=== PATIENT | female | born 2000 | race Caucasian/White ===

== ENCOUNTER → 2019-07-15 20:46 | Observation (INO) ==
[2019-07-15 20:29] LABS: Amphetamine Screen,Urine Negative ng/mL (Cutoff=1000); Barbiturate Screen,Urine Positive ng/mL (Cutoff=200); Benzodiazepines Screen,Urine Negative ng/mL (Cutoff=200); Cannabinoid Screen,Urine Negative ng/mL (Cutoff = 50); Cocaine Screen,Urine Negative ng/mL (Cutoff= 300); Opiate Screen,Urine Negative ng/mL (Cutoff=300); Phencyclidine Screen,Urine Negative ng/mL (Cutoff=25)
[2019-07-15 20:40] LABS: Bilirubin,Urine Negative (Negative); Blood,Urine Negative (Negative); Clarity,Urine Cloudy (Clear); Color,Urine Yellow (Yellow); Glucose,Urine (UA) Normal (Normal); Ketones,Urine Negative (Negative); Leukocyte Esterase,Urine Moderate (Negative); Nitrite,Urine Negative (Negative); Protein,Urine Negative (Neg-Trace); Specific Gravity,Urine 1.015 (1.010-1.025); Urobilinogen,Urine Normal (Normal)
[2019-07-15 20:44] LABS: Bacteria,Urine Moderate per hpf (None-Few); Hyaline Casts,Urine None Seen per lpf (None-Few); RBC,Urine 0-3 per hpf (0-3); Squamous Epithelial Cell,Urine Many per lpf (None-Few); WBC,Urine 30-50 per hpf (0-3)
[2019-07-15 21:59] LABS: Candida DNA Not Detected (Not Detect); Gardnerella DNA Not Detected (Not Detect); Trichomonas DNA Not Detected (Not Detect)
== END | disposition home or self-care (01) ==
LOC: 1NENULAB
PROVIDERS: ADMIT Registered Nurse; ATTEND Registered Nurse

== ENCOUNTER → 2019-10-29 19:25 | Observation (INO) ==
[2019-10-29 17:01] LABS: Basophils % 0.1 %; Eosinophils % 0.3 %; Hematocrit 30.9 % (35.3-44.9); Hemoglobin 10.8 g/dL (11.5-15.4); Immature Granulocytes % 0.8 % (0-4); Lymphocytes # 1.2 K/mcL (0.6-4.6); Lymphocytes % 9.2 %; Mean Corpuscular Hemoglobin 32.9 pg (28.0-33.3); Mean Corpuscular Volume 94.2 fL (83.0-100.0); Monocytes # 0.8 K/mcL (0.0-1.3); Monocytes % 5.7 %; Neutrophils # 11.2 K/mcL (1.6-8.9); Platelet Count 230 K/mcL (140-400); Red Blood Count 3.28 M/mcL (3.82-4.97); Red Cell Distribution Width 12.1 % (11.5-14.5); Segmented Neutrophils % 83.9 %; White Blood Count 13.3 K/mcL (4.3-11.1)
[2019-10-29 17:13] LABS: Bilirubin,Urine Negative (Negative); Blood,Urine Negative (Negative); Clarity,Urine Cloudy (Clear); Color,Urine Yellow (Yellow); Glucose,Urine (UA) Normal (Normal); Ketones,Urine Negative (Negative); Leukocyte Esterase,Urine Moderate (Negative); Nitrite,Urine Negative (Negative); Protein,Urine Negative (Neg-Trace); Specific Gravity,Urine 1.011 (1.010-1.025); Urobilinogen,Urine Normal (Normal)
[2019-10-29 17:20] LABS: Protein/Creatinine Ratio,Urine 0.26 mg/mg (0.00-0.20)
[2019-10-29 17:21] LABS: Amphetamine Screen,Urine Negative ng/mL (Cutoff=1000); Barbiturate Screen,Urine Negative ng/mL (Cutoff=200); Benzodiazepines Screen,Urine Negative ng/mL (Cutoff=200); Cannabinoid Screen,Urine Negative ng/mL (Cutoff = 50); Cocaine Screen,Urine Negative ng/mL (Cutoff= 300); Opiate Screen,Urine Negative ng/mL (Cutoff=300); Phencyclidine Screen,Urine Negative ng/mL (Cutoff=25)
[2019-10-29 17:23] LABS: Bacteria,Urine Moderate per hpf (None-Few); Hyaline Casts,Urine None Seen per lpf (None-Few); RBC,Urine 0-3 per hpf (0-3); Squamous Epithelial Cell,Urine Many per lpf (None-Few); WBC,Urine 15-30 per hpf (0-3)
[2019-10-29 17:25] LABS: Alanine Aminotransferase 6 Units/L (7-52); Aspartate Amino Transferase 13 Units/L (13-39); BUN/Creatinine Ratio 8 (6-26); Blood Urea Nitrogen 4 mg/dL (6-20); Lactate Dehydrogenase 127 Units/L (140-271); Uric Acid 2.9 mg/dL (2.3-7.6); eGFR For African Americans > 60 (> 60); eGFR For Non-African Americans > 60 (> 60)
[~2019-10-29 19:25] MED LIST: Ringers Solution, Lactated 1,000 ML IVC SCH
== END | disposition home or self-care (01) ==
LOC: 1NENULAB
PROVIDERS: ADMIT Advanced Practice Midwife; ATTEND Advanced Practice Midwife

== ENCOUNTER 2019-11-18 16:59 | Inpatient (IN) ==
[2019-11-18] MEDS ORDERED: Metoclopramide 10 MG/2 ML VIAL IVP PRN (18:08)
[2019-11-18] MEDS ORDERED: Famotidine 20 MG/2 ML VIAL IVP PRN (18:08)
[2019-11-18] MEDS ORDERED: Lidocaine 1% 20 ML MDV INFILT PRN (18:08)
[2019-11-18] MEDS ORDERED: Naloxone 0.4 MG/ML INJ IVP PRN (18:08)
[2019-11-18] MEDS ORDERED: Ondansetron 4 MG/2 ML VIAL IVP PRN (18:08)
[2019-11-18] MEDS ORDERED: Ringers Solution, Lactated 1,000 ML IVC SCH (18:15)
[2019-11-18] MEDS ORDERED: EPHEDrine 50 MG/ML VIAL IVP PRN (18:30)
[2019-11-18] MEDS ORDERED: *HR* FentaNYL (PF) 100 MCG/2 ML VIAL EP ONE (18:30)
[2019-11-18] MEDS ORDERED: Epidural Premix (fent/bupiv) 110 ML EP SCH (18:30)
[2019-11-18] MEDS ORDERED: Bupivacaine-MPF 0.25% 10 ML VIAL EP ONE (18:30)
[2019-11-18 18:34] LABS: Basophils % 0.1 %; Eosinophils % 0.1 %; Hematocrit 31.5 % (35.3-44.9); Hemoglobin 10.9 g/dL (11.5-15.4); Immature Granulocytes % 0.8 % (0-4); Lymphocytes # 1.2 K/mcL (0.6-4.6); Lymphocytes % 7.1 %; Mean Corpuscular HGB Conc 34.6 g/dL (31.6-35.5); Mean Corpuscular Hemoglobin 32.7 pg (28.0-33.3); Mean Corpuscular Volume 94.6 fL (83.0-100.0); Mean Platelet Volume 12.9 fL (9.4-12.4); Monocytes # 0.7 K/mcL (0.0-1.3); Monocytes % 4.3 %; Neutrophils # 14.4 K/mcL (1.6-8.9); Platelet Count 206 K/mcL (140-400); Red Blood Count 3.33 M/mcL (3.82-4.97); Red Cell Distribution Width 12.1 % (11.5-14.5); Segmented Neutrophils % 87.6 %; White Blood Count 16.4 K/mcL (4.3-11.1)
[2019-11-18 19:04] LABS: Amphetamine Screen,Urine Negative ng/mL (Cutoff=1000); Barbiturate Screen,Urine Negative ng/mL (Cutoff=200); Benzodiazepines Screen,Urine Negative ng/mL (Cutoff=200); Cannabinoid Screen,Urine Negative ng/mL (Cutoff = 50); Cocaine Screen,Urine Negative ng/mL (Cutoff= 300); Opiate Screen,Urine Negative ng/mL (Cutoff=300); Phencyclidine Screen,Urine Negative ng/mL (Cutoff=25)
[2019-11-18] MEDS ORDERED: Oxytocin 20 units/ LR 1000 mL 20 UNIT/1,000 ML BAG IVC SCH (22:00)
[2019-11-18] MEDS ORDERED: *HR* FentaNYL (PF) 100 MCG/2 ML VIAL ONE (23:22)
[2019-11-18] MEDS ORDERED: Ropivacaine/PF 0.2% 20 ML VIAL ONE (23:22)
[2019-11-19] MEDS ORDERED: Acetaminophen 325 MG TABLET PO PRN (06:20)
[2019-11-19] MEDS ORDERED: Lanolin 7 G OINT...G. TP PRN (06:20)
[2019-11-19] MEDS ORDERED: Oxytocin 20 units/ LR 1000 mL 20 UNIT/1,000 ML BAG IVC SCH (06:20)
[2019-11-19] MEDS ORDERED: Benzocaine/Menthol 56 GM AEROSOL SPRAY TP PRN (06:20)
[2019-11-19] MEDS: Prenatal Vit/FA 1 EACH TABLET PO SCH (10:14)
[2019-11-19] MEDS: Ibuprofen 600 MG TABLET PO PRN ×2 (10:14→15:51)
[2019-11-20 08:21] VITALS: BP 122/81
[2019-11-20] MEDS: Prenatal Vit/FA 1 EACH TABLET PO SCH (08:23)
[2019-11-20] MEDS: Ibuprofen 600 MG TABLET PO PRN (08:23)
== END 2019-11-20 10:31 | disposition home or self-care (01) | DRG 560 ==
LOC: 1NENULAB 16:59 → 1NENUOBS 11-19 06:21
PROVIDERS: ADMIT Registered Nurse; ATTEND Registered Nurse

== ENCOUNTER → 2022-01-01 23:27 | Observation (INO) ==
[2022-01-01 22:49] LABS: Bilirubin,Urine Negative (Negative); Blood,Urine Negative (Negative); Clarity,Urine Clear (Clear); Color,Urine Colorless (Yellow); Glucose,Urine (UA) Normal (Normal); Ketones,Urine Negative (Negative); Leukocyte Esterase,Urine Trace (Negative); Nitrite,Urine Negative (Negative); Protein,Urine Negative (Neg-Trace); RBC,Urine 0-3 per hpf (0-3); Specific Gravity,Urine 1.005 (1.010-1.025); Squamous Epithelial Cell,Urine Moderate per hpf (None-Few); Urobilinogen,Urine Normal (Normal)
[~2022-01-01 23:27] MED LIST changes: +Ondansetron ODT 4 MG TAB.RAPDIS SL ONE; -Ringers Solution, Lactated 1,000 ML IVC SCH
== END | disposition home or self-care (01) ==
LOC: 1NENULAB
PROVIDERS: ADMIT Advanced Practice Midwife; ATTEND Advanced Practice Midwife

== ENCOUNTER 2022-03-14 14:51 | Inpatient (IN) ==
[~2022-03-14 14:51] MED LIST changes: +*HR* Nalbuphine 10 MG/ML AMPUL IV PRN; +Azithromycin 500 MG in 0.9 % Sodium Chloride 250 ML IVPB PRN; +Famotidine 20 MG/2 ML VIAL IVP PRN; +Lidocaine 1% 20 ML MDV INFILT PRN; +Metoclopramide 10 MG/2 ML VIAL IVP PRN; +Naloxone 0.4 MG/ML INJ IVP PRN; +Ondansetron 4 MG/2 ML VIAL IVP PRN; -Ondansetron ODT 4 MG TAB.RAPDIS SL ONE
[2022-03-14] MEDS ORDERED: Oxytocin 30 UNIT/503 ML BAG IVC SCH (15:00)
[2022-03-14] MEDS ORDERED: Nicotine 7 MG PATCH.TD24 TD SCH (15:15)
[2022-03-14 15:42] LABS: Basophils % 0.2 %; Eosinophils # 0.1 K/mcL (0.0-0.6); Eosinophils % 0.6 %; Hematocrit 30.9 % (35.3-44.9); Hemoglobin 10.3 g/dL (11.5-15.4); Immature Granulocytes % 0.9 % (0-4); Lymphocytes # 2.2 K/mcL (0.6-4.6); Lymphocytes % 13.2 %; Mean Corpuscular HGB Conc 33.3 g/dL (31.6-35.5); Mean Corpuscular Hemoglobin 33.3 pg (28.0-33.3); Mean Platelet Volume 12.3 fL (9.4-12.4); Monocytes # 1.2 K/mcL (0.0-1.3); Monocytes % 6.9 %; Neutrophils # 13.3 K/mcL (1.6-8.9); Platelet Count 317 K/mcL (140-400); Red Blood Count 3.09 M/mcL (3.82-4.97); Red Cell Distribution Width 12.5 % (11.5-14.5); Segmented Neutrophils % 78.2 %
[2022-03-14 16:03] LABS: Amphetamine Screen,Urine Negative ng/mL (Cutoff=1000); Barbiturate Screen,Urine Negative ng/mL (Cutoff=200); Benzodiazepines Screen,Urine Negative ng/mL (Cutoff=200); Cannabinoid Screen,Urine Negative ng/mL (Cutoff = 50); Cocaine Screen,Urine Negative ng/mL (Cutoff= 300); Opiate Screen,Urine Negative ng/mL (Cutoff=300); Phencyclidine Screen,Urine Negative ng/mL (Cutoff=25)
[2022-03-14 16:15] LABS: Influenza A PCR Negative (Negative); Influenza B PCR Negative (Negative); Resp. Syncytial Virus PCR Negative (Negative)
[2022-03-14 16:38] LABS: SARS-CoV-2 by PCR (In House) Negative (Negative)
[2022-03-14] MEDS ORDERED: EPHEDrine 50 MG/ML VIAL IVP PRN (17:01)
[2022-03-14] MEDS ORDERED: Ropivacaine/PF 0.2% 20 ML VIAL EP ONE (17:01)
[2022-03-14] MEDS ORDERED: *HR* FentaNYL (PF) 100 MCG/2 ML VIAL EP ONE (17:01)
[2022-03-14] MEDS: Ringers Solution, Lactated 1,000 ML IVC SCH ×2 (17:08→22:11)
[2022-03-14] MEDS ORDERED: Epidural Premix (fent/bupiv) 110 ML EP SCH (17:15)
[2022-03-15] MEDS ORDERED: OXYTOCIN/RINGERS LACTATE 10 UNIT/166.6 ML BAG IVC ONE (01:52)
[2022-03-15] MEDS ORDERED: Oxytocin 30 UNIT/503 ML BAG IVC SCH (01:52)
[2022-03-15] MEDS ORDERED: Ondansetron ODT 4 MG TAB.RAPDIS SL PRN (01:52)
[2022-03-15] MEDS ORDERED: Lanolin 7 G OINT...G. TP PRN (01:52)
[2022-03-15] MEDS ORDERED: Benzocaine/Menthol 56 GM AEROSOL SPRAY TP PRN (01:52)
[2022-03-15] MEDS: Acetaminophen 325 MG TABLET PO SCH ×3 (02:09→20:09)
[2022-03-15] MEDS: Ibuprofen 600 MG TABLET PO SCH ×3 (02:10→20:09)
[2022-03-15 06:12] LABS: Basophils # 0.1 K/mcL (0.0-0.2); Basophils % 0.2 %; Eosinophils # 0.1 K/mcL (0.0-0.6); Eosinophils % 0.4 %; Hematocrit 26.6 % (35.3-44.9); Hemoglobin 8.9 g/dL (11.5-15.4); Immature Granulocytes % 0.5 % (0-4); Lymphocytes # 2.4 K/mcL (0.6-4.6); Lymphocytes % 10.2 %; Mean Corpuscular HGB Conc 33.5 g/dL (31.6-35.5); Mean Corpuscular Hemoglobin 33.7 pg (28.0-33.3); Mean Corpuscular Volume 100.8 fL (83.0-100.0); Mean Platelet Volume 12.5 fL (9.4-12.4); Monocytes # 1.4 K/mcL (0.0-1.3); Monocytes % 5.7 %; Neutrophils # 19.8 K/mcL (1.6-8.9); Platelet Count 253 K/mcL (140-400); Red Blood Count 2.64 M/mcL (3.82-4.97); Red Cell Distribution Width 12.7 % (11.5-14.5); White Blood Count 23.9 K/mcL (4.3-11.1)
[2022-03-15] MEDS ORDERED: Prenatal Vit/FA 1 EACH TABLET PO SCH (09:00)
[2022-03-15 20:19] VITALS: BP 114/70; PULSE 60; TEMP 98.1; O2SAT 98
== END 2022-03-16 00:06 | disposition home or self-care (01) | DRG 560 ==
LOC: 1NENULAB → 1NENUOBS 03-15 01:39
PROVIDERS: ADMIT Advanced Practice Midwife; ATTEND Advanced Practice Midwife